=== PATIENT | female | born 1975 | race Two or more races ===

== ENCOUNTER 2017-02-25 08:16 | Inpatient (IN) | payer OTHER ==
[~2017-02-25] VITALS: Ht 160 cm; Wt 96.0 kg
[2017-02-25 09:54] LABS: HCG UR SG 1.037 (1.003-1.030); MICROSCOPIC NOT IND
[2017-02-25 10:21] LABS: CULTURE INDICATED? NO
[2017-02-25] MEDS ORDERED: CEFOTETAN PMX 1GM/50ML 50 ML IV ONE (11:00)
[2017-02-25] MEDS ORDERED: SODIUM CHLORIDE 0.9% 1,000ML IVBOLUS ONE (11:00)
[2017-02-25] MEDS ORDERED: CEFOTETAN PMX 1GM/50ML 50 ML ONE (11:27)
[2017-02-25] MEDS ORDERED: METF500T4 PO (11:52)
[2017-02-25] MEDS ORDERED: EMPA25TA PO (11:53)
[2017-02-25] MEDS ORDERED: LINA5TAB PO (11:53)
[2017-02-25] MEDS ORDERED: DOCUSATE 100 MG CAPSULE PO PRN (12:00)
[2017-02-25] MEDS ORDERED: BISACODYL 10 MG SUPP PR PRN (12:00)
[2017-02-25] MEDS ORDERED: ACETAMINOPHEN 325 MG TABLET PO PRN (12:00)
[2017-02-25] MEDS ORDERED: hydrALAzine 20 MG/ML, 1ML IVPush PRN (12:00)
[2017-02-25] MEDS ORDERED: EPINEPHRINE 1 MG/ML, 1ML ONE (12:17)
[2017-02-25] MEDS ORDERED: BUPIVACAINE/PF 0.5% ONE (12:17)
[2017-02-25] MEDS ORDERED: GLYB1TAB13 PO (13:40)
[2017-02-25] MEDS ORDERED: MIDAZOLAM 1 MG/ML, 2ML ONE (13:52)
[2017-02-25] MEDS ORDERED: FENTANYL PF 250 MCG/5ML ONE ×2 (13:52→13:56)
[2017-02-25] MEDS ORDERED: ONDANSETRON 2MG/ML, 2ML ONE ×3 (13:53→15:19)
[2017-02-25] MEDS ORDERED: PROPOFOL 10 MG/ML, 20ML ONE ×2 (13:53→13:56)
[2017-02-25] MEDS ORDERED: SUCCINYLCHOLINE 20 MG/ML, 10ML ONE ×2 (13:53→13:56)
[2017-02-25] MEDS ORDERED: ROCURONIUM 10 MG/ML,10ML ONE ×2 (13:53→13:56)
[2017-02-25] MEDS ORDERED: CEFOTETAN 1 GM ONE (13:56)
[2017-02-25] MEDS ORDERED: PHENYLEPHRINE 10 MG/ML ONE (13:56)
[2017-02-25] MEDS ORDERED: NEOSTIGMINE 1 MG/ML, 10ML ONE ×2 (13:56→14:22)
[2017-02-25] MEDS ORDERED: GLYCOPYRROLATE 0.2MG/1ML, 5ML ONE (13:56)
[2017-02-25] MEDS ORDERED: BUPIVACAINE/PF 0.5% INFIL ONE (14:17)
[2017-02-25] MEDS ORDERED: EPINEPHRINE 1 MG/ML, 1ML INFIL ONE (14:18)
[2017-02-25] MEDS ORDERED: GLYCOPYRROLATE 0.4 MG/2 ML, 2ML ONE (14:22)
[2017-02-25] MEDS ORDERED: INSULIN SINGLE DOSE, ER SQ-INSULIN ONE (14:44)
[2017-02-25] MEDS ORDERED: INSULIN ASPART 100 UNITS/ML, PEN SQ-INSULIN STA ×2 (14:52→14:54)
[2017-02-25] MEDS ORDERED: PROMETHAZINE 25 MG/ML, 1ML IV PRN (15:00)
[2017-02-25] MEDS ORDERED: hydrALAzine 20 MG/ML, 1ML IV PRN (15:00)
[2017-02-25] MEDS ORDERED: ONDANSETRON 2MG/ML, 2ML IVPush PRN (15:00)
[2017-02-25] MEDS ORDERED: LABETALOL 5MG/ML, 20ML IV PRN (15:00)
[2017-02-25] MEDS ORDERED: MEPERIDINE/PF 25MG/0.5ML IVPush PRN (15:00)
[2017-02-25] MEDS ORDERED: OXYcodone 5 MG/5 ML ORAL.SOL UDC PO PRN (15:00)
[2017-02-25] MEDS ORDERED: FENTANYL PF 100 MCG/2ML IV PRN (15:00)
[2017-02-25] MEDS ORDERED: HYDROmorphone 2 MG/ML, 1ML ONE (15:20)
[2017-02-25] MEDS: HYDROmorphone 1 MG/ML, 1ML IV PRN ×4 (15:24→15:40)
[2017-02-25 16:31] VITALS: BP 125/82
[2017-02-25] MEDS ORDERED: HYDROcodone/APAP 5/325 TABLET PO PRN (17:00)
[2017-02-25] MEDS ORDERED: MORPHINE SULFATE 4 MG/ML, 1ML IVPush PRN (17:00)
[2017-02-25] MEDS: SODIUM CHLORIDE 0.9% 1,000 ML IV SCH (18:30)
[2017-02-25] MEDS: metFORMIN 500 MG TABLET PO SCH (18:31)
[2017-02-25] MEDS: HYDROmorphone 2 MG/ML, 1ML IV PRN (18:36)
[2017-02-25] MEDS: INSULIN ASPART 100 UNITS/ML, PEN SQ-INSULIN SCH ×2 (18:54→22:12)
[2017-02-25 20:44] VITALS: BP 135/81
[2017-02-25] MEDS: ONDANSETRON 2MG/ML, 2ML IVPush PRN (22:13)
[2017-02-25] MEDS: GlyBURIDE 5 MG TABLET PO SCH (22:13)
[2017-02-25] MEDS: CEFOTETAN PMX 1GM/50ML 50 ML IV SCH (23:32)
[2017-02-25 23:35] VITALS: BP 157/95
[2017-02-26] VITALS (7 sets, daily range): BP systolic 108–188; BP diastolic 61–103
[2017-02-26] MEDS: PROMETHAZINE 25 MG/ML, 1ML IM PRN ×3 (00:25→21:15)
[2017-02-26] MEDS: HYDROmorphone 2 MG/ML, 1ML IV PRN ×2 (02:12→04:31)
[2017-02-26] MEDS: LABETALOL 5MG/ML, 20ML IVPush PRN ×2 (04:20→21:14)
[2017-02-26] MEDS: SODIUM CHLORIDE 0.9% 1,000 ML IV SCH ×2 (04:21→19:00)
[2017-02-26] MEDS: ONDANSETRON 2MG/ML, 2ML IVPush PRN ×2 (04:31→12:40)
[2017-02-26 05:23] LABS: BASOPHILS # (AUTO) 0.03 x10^3/uL (0-0.1); BASOPHILS % (AUTO) 0 % (0-1); EOSINOPHILS % (AUTO) 0 % (1-7); LYMPHOCYTES # (AUTO) 1.63 x10^3/uL (1-3.4); LYMPHOCYTES % (AUTO) 10 % (22-44); MD NO; MEAN CORPUSCULAR HEMOGLOBIN 30.3 pg (27.0-34.8); MEAN CORPUSCULAR HGB CONC 33.5 g/dL (32.4-35.8); MEAN CORPUSCULAR VOLUME 90.7 fL (80-100); MEAN PLATELET VOLUME 9.9 fL (7.4-10.4); MONOCYTES # (AUTO) 0.42 x10^3/uL (0.2-0.8); MONOCYTES % (AUTO) 3 % (2-9); NEUTROPHILS # (AUTO) 14.56 x10^3/uL (1.8-6.8); NEUTROPHILS % (AUTO) 88 % (42-75); PLATELET COUNT 286 x10^3/uL (130-400); RED BLOOD COUNT 4.15 x10^6/uL (3.82-5.3); RED CELL DISTRIBUTION WIDTH 13.1 % (9.6-15.2)
[2017-02-26 05:35] LABS: CALCIUM 8.5 mg/dL (8.5-10.1); CHLORIDE 102 mmol/L (98-107)
[2017-02-26 05:41] LABS: ALANINE AMINOTRANSFERASE 89 U/L (12-78); ALKALINE PHOSPHATASE 82 U/L (45-117); ANION GAP 9 mmol/L (5-15); BILIRUBIN,TOTAL 0.5 mg/dL (0.2-1.0)
[2017-02-26 07:42] LABS: HEMOGLOBIN A1C 11.2 % (4.2-6.3)
[2017-02-26] MEDS: metFORMIN 500 MG TABLET PO SCH ×2 (08:42→16:42)
[2017-02-26] MEDS: SITAGLIPTIN 25MG TABLET PO SCH (08:42)
[2017-02-26] MEDS: GlyBURIDE 5 MG TABLET PO SCH ×2 (08:42→22:35)
[2017-02-26] MEDS: ENOXAPARIN 40 MG/0.4 ML SQ SCH (08:43)
[2017-02-26] MEDS: INSULIN ASPART 100 UNITS/ML, PEN SQ-INSULIN SCH ×4 (08:44→21:13)
[2017-02-26] MEDS: CEFOTETAN PMX 1GM/50ML 50 ML IV SCH (11:39)
[2017-02-26] MEDS: MORPHINE SULFATE 4 MG/ML, 1ML IVPush PRN ×2 (12:40→21:14)
[2017-02-26] MEDS: EMPAGLIFOZIN 25 MG PO SCH (16:30)
[2017-02-26] MEDS: OXYcodone/APAP 5/325MG TABLET PO PRN (16:42)
[2017-02-27 01:29] VITALS: BP 132/71
[2017-02-27 05:22] LABS: ALANINE AMINOTRANSFERASE 89 U/L (12-78); ALBUMIN 2.8 g/dL (3.4-5.0); ANION GAP 9 mmol/L (5-15); CALCIUM 8.2 mg/dL (8.5-10.1); CHLORIDE 103 mmol/L (98-107); CREATININE 1.02 mg/dL (0.55-1.02)
[2017-02-27 05:25] LABS: ALKALINE PHOSPHATASE 85 U/L (45-117); BILIRUBIN,TOTAL 0.6 mg/dL (0.2-1.0)
[2017-02-27] MEDS: ONDANSETRON 2MG/ML, 2ML IVPush PRN ×2 (05:39→12:11)
[2017-02-27] MEDS: PROMETHAZINE 25 MG/ML, 1ML IM PRN ×2 (05:39→17:37)
[2017-02-27] MEDS: SODIUM CHLORIDE 0.9% 1,000 ML IV SCH ×2 (05:39→19:40)
[2017-02-27] MEDS: NITROGLYCERIN 0.4 MG BOTTLE (25 TABS) SL PRN ×3 (06:13→06:22)
[2017-02-27] MEDS: OXYcodone/APAP 5/325MG TABLET PO PRN ×2 (06:35→20:31)
[2017-02-27 06:38] LABS: TROPONIN I < 0.015 ng/mL (0.000-0.045)
[2017-02-27 07:53] LABS: BASOPHILS # (AUTO) 0.07 x10^3/uL (0-0.1); BASOPHILS % (AUTO) 0 % (0-1); EOSINOPHILS # (AUTO) 0.04 x10^3/uL (0-0.4); EOSINOPHILS % (AUTO) 0 % (1-7); LYMPHOCYTES # (AUTO) 2.67 x10^3/uL (1-3.4); LYMPHOCYTES % (AUTO) 15 % (22-44); MD NO; MEAN CORPUSCULAR HGB CONC 33.1 g/dL (32.4-35.8); MEAN CORPUSCULAR VOLUME 90.8 fL (80-100); MEAN PLATELET VOLUME 9.9 fL (7.4-10.4); MONOCYTES # (AUTO) 1.12 x10^3/uL (0.2-0.8); MONOCYTES % (AUTO) 6 % (2-9); NEUTROPHILS # (AUTO) 13.76 x10^3/uL (1.8-6.8); NEUTROPHILS % (AUTO) 78 % (42-75); PLATELET COUNT 256 x10^3/uL (130-400); RED CELL DISTRIBUTION WIDTH 13.4 % (9.6-15.2)
[2017-02-27] MEDS ORDERED: SODIUM CHLORIDE 0.9% 1,000 ML IV ONE (08:00)
[2017-02-27] MEDS: SITAGLIPTIN 25MG TABLET PO SCH (08:14)
[2017-02-27] MEDS: ENOXAPARIN 40 MG/0.4 ML SQ SCH (08:14)
[2017-02-27] MEDS: metFORMIN 500 MG TABLET PO SCH ×2 (08:14→16:14)
[2017-02-27] MEDS: GlyBURIDE 5 MG TABLET PO SCH ×2 (08:14→20:31)
[2017-02-27] MEDS: INSULIN ASPART 100 UNITS/ML, PEN SQ-INSULIN SCH ×4 (08:15→20:33)
[2017-02-27 08:21] VITALS: BP 157/85
[2017-02-27] MEDS ORDERED: NITROGLYCERIN 0.4 MG BOTTLE (25 TABS) SL ONE (11:29)
[2017-02-27 14:43] VITALS: BP 190/103
[2017-02-27] MEDS: LABETALOL 5MG/ML, 20ML IVPush PRN (14:52)
[2017-02-27] MEDS ORDERED: OMNIPAQUE 350 MG/ML, 100ML BOTTLE ONE (15:21)
[2017-02-27] MEDS: EMPAGLIFOZIN 25 MG PO SCH ×2 (16:14→16:30)
[2017-02-27] MEDS ORDERED: LORazepam 0.5MG TABLET PO PRN (17:00)
[2017-02-27 20:58] VITALS: BP 167/92
[2017-02-28] VITALS (7 sets, daily range): BP systolic 159–187; BP diastolic 78–103
[2017-02-28 05:49] LABS: MEAN CORPUSCULAR HEMOGLOBIN 30.3 pg (27.0-34.8); MEAN CORPUSCULAR HGB CONC 33.8 g/dL (32.4-35.8); MEAN CORPUSCULAR VOLUME 89.5 fL (80-100); MEAN PLATELET VOLUME 9.3 fL (7.4-10.4); PLATELET COUNT 283 x10^3/uL (130-400); RED BLOOD COUNT 4.29 x10^6/uL (3.82-5.3); RED CELL DISTRIBUTION WIDTH 13.3 % (9.6-15.2)
[2017-02-28 06:30] LABS: BASOPHILS # (AUTO) 0.02 x10^3/uL (0-0.1); BASOPHILS % (AUTO) 0 % (0-1); EOSINOPHILS # (AUTO) 0.02 x10^3/uL (0-0.4); EOSINOPHILS % (AUTO) 0 % (1-7); LYMPHOCYTES # (AUTO) 2.04 x10^3/uL (1-3.4); LYMPHOCYTES % (AUTO) 12 % (22-44); MD SCAN; MONOCYTES # (AUTO) 0.56 x10^3/uL (0.2-0.8); MONOCYTES % (AUTO) 3 % (2-9); NEUTROPHILS # (AUTO) 14.78 x10^3/uL (1.8-6.8); NEUTROPHILS % (AUTO) 85 % (42-75)
[2017-02-28] MEDS: SODIUM CHLORIDE 0.9% 1,000 ML IV SCH ×2 (07:11→14:20)
[2017-02-28] MEDS: ENOXAPARIN 40 MG/0.4 ML SQ SCH (08:04)
[2017-02-28] MEDS: INSULIN ASPART 100 UNITS/ML, PEN SQ-INSULIN SCH ×4 (08:04→20:14)
[2017-02-28] MEDS: metFORMIN 500 MG TABLET PO SCH ×2 (08:04→17:27)
[2017-02-28] MEDS: ONDANSETRON 2MG/ML, 2ML IVPush PRN ×2 (08:10→15:06)
[2017-02-28] MEDS: SITAGLIPTIN 25MG TABLET PO SCH (09:20)
[2017-02-28] MEDS: GlyBURIDE 5 MG TABLET PO SCH ×2 (09:20→20:09)
[2017-02-28] MEDS: LABETALOL 5MG/ML, 20ML IVPush PRN (13:06)
[2017-02-28 13:35] LABS: ALANINE AMINOTRANSFERASE 62 U/L (12-78); ALBUMIN 2.9 g/dL (3.4-5.0); ANION GAP 11 mmol/L (5-15); CALCIUM 8.8 mg/dL (8.5-10.1); CHLORIDE 95 mmol/L (98-107)
[2017-02-28 13:38] LABS: ALKALINE PHOSPHATASE 95 U/L (45-117); BILIRUBIN,TOTAL 0.6 mg/dL (0.2-1.0); CREATININE 0.84 mg/dL (0.55-1.02)
[2017-02-28] MEDS ORDERED: LACTULOSE 20 GM/30 ML UDC PO PRN (15:00)
[2017-02-28] MEDS ORDERED: BISACODYL 10 MG SUPP PR PRN (15:00)
[2017-02-28] MEDS: OXYcodone/APAP 5/325MG TABLET PO PRN (15:06)
[2017-02-28] MEDS: EMPAGLIFOZIN 25 MG PO SCH ×2 (16:30→17:19)
[2017-02-28] MEDS: SENNOSIDES 8.8 MG/5 ML ORAL SOL NG SCH (20:09)
[2017-02-28] MEDS: SENNA/DOCUSATE TABLET PO SCH (20:10)
[2017-03-01 02:50] VITALS: BP 143/82
[2017-03-01 05:28] LABS: BASOPHILS # (AUTO) 0.07 x10^3/uL (0-0.1); BASOPHILS % (AUTO) 0 % (0-1); EOSINOPHILS # (AUTO) 0.07 x10^3/uL (0-0.4); EOSINOPHILS % (AUTO) 0 % (1-7); LYMPHOCYTES % (AUTO) 14 % (22-44); MD NO; MEAN CORPUSCULAR HEMOGLOBIN 30.2 pg (27.0-34.8); MEAN CORPUSCULAR HGB CONC 33.4 g/dL (32.4-35.8); MEAN CORPUSCULAR VOLUME 90.3 fL (80-100); MEAN PLATELET VOLUME 9.4 fL (7.4-10.4); MONOCYTES % (AUTO) 6 % (2-9); NEUTROPHILS # (AUTO) 12.51 x10^3/uL (1.8-6.8); NEUTROPHILS % (AUTO) 80 % (42-75); PLATELET COUNT 303 x10^3/uL (130-400); RED BLOOD COUNT 4.25 x10^6/uL (3.82-5.3); RED CELL DISTRIBUTION WIDTH 13.3 % (9.6-15.2)
[2017-03-01 05:36] LABS: ALANINE AMINOTRANSFERASE 42 U/L (12-78); ALBUMIN 2.7 g/dL (3.4-5.0); ANION GAP 12 mmol/L (5-15); CALCIUM 8.4 mg/dL (8.5-10.1); CHLORIDE 96 mmol/L (98-107); CREATININE 0.77 mg/dL (0.55-1.02)
[2017-03-01 05:39] LABS: ALKALINE PHOSPHATASE 87 U/L (45-117); BILIRUBIN,TOTAL 0.5 mg/dL (0.2-1.0); TOTAL PROTEIN 7.1 g/dL (6.4-8.2)
[2017-03-01] MEDS: SODIUM CHLORIDE 0.9% 1,000 ML IV SCH (06:24)
[2017-03-01] MEDS: DOCUSATE 50 MG/5 ML, 10ML UDC NG SCH (07:15)
[2017-03-01] MEDS: EMPAGLIFOZIN 25 MG PO SCH (07:19)
[2017-03-01] MEDS ORDERED: CEFTRIAXONE PMX 2GM/50ML 50 ML IV SCH (08:00)
[2017-03-01] MEDS ORDERED: POTASSIUM CHLORIDE 20 MEQ TAB.ER.PRT PO ONE (08:00)
[2017-03-01] MEDS: INSULIN ASPART 100 UNITS/ML, PEN SQ-INSULIN SCH ×4 (08:07→20:55)
[2017-03-01] MEDS: metFORMIN 500 MG TABLET PO SCH ×2 (08:07→16:10)
[2017-03-01] MEDS: ENOXAPARIN 40 MG/0.4 ML SQ SCH (08:07)
[2017-03-01] MEDS: GlyBURIDE 5 MG TABLET PO SCH ×2 (08:07→20:49)
[2017-03-01] MEDS: DOCUSATE 100 MG CAPSULE PO SCH (08:07)
[2017-03-01] MEDS: SITAGLIPTIN 25MG TABLET PO SCH (08:08)
[2017-03-01 08:25] VITALS: BP 133/83
[2017-03-01] MEDS: METRONIDAZOLE PMX 500MG/100ML 100 ML IV SCH ×2 (08:57→17:46)
[2017-03-01] MEDS: METOPROLOL TARTRATE 50 MG TABLET PO SCH ×2 (09:12→17:46)
[2017-03-01 12:44] VITALS: BP 122/83
[2017-03-01 19:26] VITALS: BP 151/52
[2017-03-01] MEDS: SENNOSIDES 8.8 MG/5 ML ORAL SOL NG SCH (20:49)
[2017-03-01] MEDS: SENNA/DOCUSATE TABLET PO SCH (20:49)
[2017-03-01] MEDS: CEFTRIAXONE 2,000 MG in SODIUM CHLORIDE 0.9% 50 ML IV SCH (20:56)
[2017-03-02 00:54] VITALS: BP 165/81
[2017-03-02] MEDS: SODIUM CHLORIDE 0.9% 1,000 ML IV SCH (01:08)
[2017-03-02] MEDS: METRONIDAZOLE PMX 500MG/100ML 100 ML IV SCH ×3 (02:02→18:33)
[2017-03-02 05:32] LABS: BASOPHILS # (AUTO) 0.02 x10^3/uL (0-0.1); BASOPHILS % (AUTO) 0 % (0-1); EOSINOPHILS % (AUTO) 1 % (1-7); LYMPHOCYTES # (AUTO) 2.52 x10^3/uL (1-3.4); LYMPHOCYTES % (AUTO) 17 % (22-44); MD NO; MEAN CORPUSCULAR HGB CONC 33.2 g/dL (32.4-35.8); MEAN CORPUSCULAR VOLUME 90.4 fL (80-100); MEAN PLATELET VOLUME 9.3 fL (7.4-10.4); MONOCYTES # (AUTO) 0.87 x10^3/uL (0.2-0.8); MONOCYTES % (AUTO) 6 % (2-9); NEUTROPHILS # (AUTO) 11.08 x10^3/uL (1.8-6.8); NEUTROPHILS % (AUTO) 76 % (42-75); PLATELET COUNT 287 x10^3/uL (130-400); RED BLOOD COUNT 4.27 x10^6/uL (3.82-5.3); RED CELL DISTRIBUTION WIDTH 13.1 % (9.6-15.2)
[2017-03-02 05:38] LABS: CHLORIDE 99 mmol/L (98-107)
[2017-03-02 05:52] LABS: ALANINE AMINOTRANSFERASE 30 U/L (12-78); ALBUMIN 2.7 g/dL (3.4-5.0); ALKALINE PHOSPHATASE 80 U/L (45-117); ANION GAP 11 mmol/L (5-15); BILIRUBIN,TOTAL 0.5 mg/dL (0.2-1.0); CALCIUM 8.3 mg/dL (8.5-10.1); CREATININE 0.73 mg/dL (0.55-1.02); TOTAL PROTEIN 6.8 g/dL (6.4-8.2)
[2017-03-02] MEDS: METOPROLOL TARTRATE 50 MG TABLET PO SCH ×2 (06:09→18:32)
[2017-03-02] MEDS: INSULIN ASPART 100 UNITS/ML, PEN SQ-INSULIN SCH ×4 (07:56→21:07)
[2017-03-02] MEDS: metFORMIN 500 MG TABLET PO SCH ×2 (07:58→17:13)
[2017-03-02] MEDS: DOCUSATE 50 MG/5 ML, 10ML UDC NG SCH (07:59)
[2017-03-02] MEDS: SITAGLIPTIN 25MG TABLET PO SCH (07:59)
[2017-03-02] MEDS: GlyBURIDE 5 MG TABLET PO SCH ×2 (07:59→21:01)
[2017-03-02] MEDS: DOCUSATE 100 MG CAPSULE PO SCH (07:59)
[2017-03-02] MEDS: ENOXAPARIN 40 MG/0.4 ML SQ SCH (07:59)
[2017-03-02 08:08] VITALS: BP 118/75
[2017-03-02] MEDS ORDERED: POTASSIUM PHOSPHATE 44 MEQ in SODIUM CHLORIDE 0.9% 500 ML IV ONE (10:00)
[2017-03-02] MEDS ORDERED: MAGNESIUM SULFATE 1 GM in SODIUM CHLORIDE 0.9% 50 ML IV ONE (10:00)
[2017-03-02] MEDS: POTASSIUM CHLORIDE 20 MEQ TAB.ER.PRT PO SCH ×2 (10:24→13:17)
[2017-03-02 14:12] VITALS: BP 151/86
[2017-03-02 15:51] LABS: ANION GAP 10 mmol/L (5-15); CALCIUM 8.8 mg/dL (8.5-10.1); CHLORIDE 100 mmol/L (98-107); CREATININE 0.74 mg/dL (0.55-1.02)
[2017-03-02] MEDS ORDERED: POTASSIUM CHLORIDE 20 MEQ TAB.ER.PRT PO ONE (16:30)
[2017-03-02] MEDS: EMPAGLIFOZIN 25 MG PO SCH (16:30)
[2017-03-02 20:26] VITALS: BP 142/84
[2017-03-02] MEDS: CEFTRIAXONE 2,000 MG in SODIUM CHLORIDE 0.9% 50 ML IV SCH (21:01)
[2017-03-03 01:37] VITALS: BP 129/79
[2017-03-03] MEDS: METRONIDAZOLE PMX 500MG/100ML 100 ML IV SCH ×2 (02:27→10:23)
[2017-03-03 05:43] LABS: BASOPHILS # (AUTO) 0.06 x10^3/uL (0-0.1); BASOPHILS % (AUTO) 0 % (0-1); EOSINOPHILS # (AUTO) 0.17 x10^3/uL (0-0.4); EOSINOPHILS % (AUTO) 1 % (1-7); LYMPHOCYTES # (AUTO) 2.42 x10^3/uL (1-3.4); LYMPHOCYTES % (AUTO) 17 % (22-44); MD NO; MEAN CORPUSCULAR HGB CONC 33.5 g/dL (32.4-35.8); MEAN CORPUSCULAR VOLUME 89.7 fL (80-100); MEAN PLATELET VOLUME 9.3 fL (7.4-10.4); MONOCYTES # (AUTO) 0.73 x10^3/uL (0.2-0.8); MONOCYTES % (AUTO) 5 % (2-9); NEUTROPHILS % (AUTO) 76 % (42-75); PLATELET COUNT 309 x10^3/uL (130-400); RED BLOOD COUNT 4.29 x10^6/uL (3.82-5.3); RED CELL DISTRIBUTION WIDTH 13.1 % (9.6-15.2)
[2017-03-03 05:48] LABS: CHLORIDE 100 mmol/L (98-107)
[2017-03-03 06:00] LABS: ANION GAP 14 mmol/L (5-15); CALCIUM 8.2 mg/dL (8.5-10.1); CREATININE 0.65 mg/dL (0.55-1.02)
[2017-03-03] MEDS: METOPROLOL TARTRATE 50 MG TABLET PO SCH (06:33)
[2017-03-03] MEDS: INSULIN ASPART 100 UNITS/ML, PEN SQ-INSULIN SCH ×3 (06:37→16:39)
[2017-03-03] MEDS: DOCUSATE 50 MG/5 ML, 10ML UDC NG SCH (07:52)
[2017-03-03] MEDS: DOCUSATE 100 MG CAPSULE PO SCH (07:53)
[2017-03-03] MEDS: ENOXAPARIN 40 MG/0.4 ML SQ SCH (07:53)
[2017-03-03] MEDS: metFORMIN 500 MG TABLET PO SCH ×2 (07:53→16:40)
[2017-03-03] MEDS: GlyBURIDE 5 MG TABLET PO SCH (07:54)
[2017-03-03] MEDS: SITAGLIPTIN 25MG TABLET PO SCH (07:54)
[2017-03-03 08:10] VITALS: BP 172/97
[2017-03-03 13:00] VITALS: BP 105/75
[2017-03-03] MEDS ORDERED: IBUPROFEN 200 MG TABLET PO PRN (16:00)
[2017-03-03] MEDS: EMPAGLIFOZIN 25 MG PO SCH (16:30)
[2017-03-03] MEDS ORDERED: IBUP-1222 PO (16:50)
[2017-03-03] MEDS ORDERED: ACET325T14 PO (16:50)
[2017-03-03] MEDS ORDERED: CEFD300C37 PO (16:50)
[2017-03-03] MEDS ORDERED: METR500T PO (16:50)
== END 2017-03-03 18:00 | disposition home or self-care (01) | DRG 853 ==
LOC: ED 09:03 → EDIP 11:12 → INTOOBSV 11:12 → OBSVTOIN 11:12 → 4NOR 16:00
PROVIDERS: ADMIT Hospitalist; ATTEND Internal Medicine
PROC: 0FT44ZZ Resection of Gallbladder, Percutaneous Endoscopic Approach (ICD-10-PCS; principal; 2017-02-25 14:30)
DX: A41.9 Sepsis, unspecified organism (principal); E43 Unspecified severe protein-calorie malnutrition; K80.12 Calculus of gallbladder with acute and chronic cholecystitis without obstruction; Z68.37 Body mass index [BMI] 37.0-37.9, adult; E11.65 Type 2 diabetes mellitus with hyperglycemia; E66.01 Morbid (severe) obesity due to excess calories; E83.39 Other disorders of phosphorus metabolism; E87.6 Hypokalemia; Z83.3 Family history of diabetes mellitus
CPT/HCPCS: 36415; 71045; 74177; 80047; 80048; 80053; 81003; 81025; 82962; 83036; 83735; 84100; 84484; 85025; 88304; 93005; 96365; 96366; 96372; 96375; J0171; J0696; J1170; J1650; J1815; J2250; J2405; J2550; J2704; J2710; J3010; J3475; J3490; Q9967; C1760; J0330; J0360; J2370; J7030; J7040; S0074